=== PATIENT | female | born 1975 | race Caucasian/White ===

== ENCOUNTER → 2017-07-04 | Emergency (ER) | payer OTHER ==
[~2017-07-04] VITALS: Ht 170.2 cm; Wt 63.5 kg
[~2017-07-04] MED LIST: LOSARTAN POTASS25 MG
== END | disposition home or self-care (01) ==
LOC: ER 20:45
DX: J11.1 Influenza due to unidentified influenza virus with other respiratory manifestations (principal); J06.9 Acute upper respiratory infection, unspecified